=== PATIENT | female | born 1960 | race Caucasian/White ===

== ENCOUNTER 2018-07-11 06:43 | Day surgery (SDC) | END 2018-07-11 14:54 | disposition home or self-care (01) ==

== ENCOUNTER 2018-10-03 06:09 | Day surgery (SDC) | payer OTHER ==
[~2018-10-03] VITALS: Ht 127 cm; Wt 74.9 kg
[2018-10-03 07:29] VITALS: BP 122/58; PULSE 60; RESP 14
[2018-10-03] MEDS ORDERED: no meds (07:29)
--- NOTE | 2018-10-03 07:31 | PREAC ---
Date/Time of Note Date/Time of Note DATE: 10/03/18 TIME: 07:29 Anesthesia Eval and Record Evaluation Time Pre-Procedure Interview DATE: 10/03/18 TIME: 07:29 Age 58 Sex female NPO: 8 hrs Preoperative diagnosis ABDOMINAL PAIN Planned procedure EGD Past Medical History Past Medical History: Includes Cardio: Dyslipidemia GI: Obesity Surgery & Anesthesia Issues No known issue Meds Anticoagulation: No Beta Beena within 24 hr: No Reason Beta Beena not given: Pt. not on B-Beena Reported Medications [no meds] No Conflict Check 10/03/18 [None] No Conflict Check 07/11/18 Meds reviewed: Yes Allergies Coded Allergies: No Known Allergy (Unverified , 05/08/12) Allergies Reviewed: Yes Labs/Studies Labs Reviewed: Reviewed by anesthesiologist test: N/A Pre-procedure Exam Airway: Adequate mouth opening, Adequate thyromental dist Mallampati: Mallampati II Teeth: Normal Lung: Normal Heart: Normal ASA Physical Status ASA physical status: 2 Emergency: None Planned Anesthetic General/MAC: MAC Planned Pain Management Parenteral pain med Pre-operative Attestations Prior to commencing anesthesia and surgery, the patient was re-evaluated, there was verification of: *The patient's identity *The results of appropriate recent lab work and preoperative vital signs *The above evaluation not changing prior to induction *Anesthetic plan, risk benefits, alternative and complications discussed with patient/family; questions answered; patient/family understands, accepts and wishes to proceed. LINDSAY RUIZ Oct 03, 2018 07:31
[2018-10-03] MEDS ORDERED: LIDOCAINE 2% (SDV) 5 ML INJ ONE (07:32)
[2018-10-03] MEDS ORDERED: PROPOFOL 40 ML ONE (07:32)
[2018-10-03] MEDS ORDERED: EPHEDrine SULFATE 50 MG/5 ML SYG IV PRN (08:00)
[2018-10-03] MEDS ORDERED: FENTAnyl 50 MCG/ML VIAL IV PRN (08:00)
[2018-10-03] MEDS ORDERED: ONDANSETRON 4 MG INJ IV PRN (08:00)
[2018-10-03] MEDS ORDERED: hydrALAzine 20 MG INJ IV PRN (08:00)
[2018-10-03] MEDS ORDERED: LABETALOL HCL 20MG INJ IV PRN (08:00)
--- NOTE | 2018-10-03 08:29 | PAC ---
Date/Time of Note Date/Time of Note DATE: 10/03/18 TIME: 08:28 Post-Anesthesia Notes Post-Anesthesia Note Last documented vital signs TEMP 98.1 BP 124/67 O2 SAT 99% Activity: WNL Respiratory function: WNL Cardiovascular function: WNL Mental status: Baseline Pain reasonably controlled: Yes Hydration appropriate: Yes Nausea/Vomiting absent: Yes LINDSAY RUIZ Oct 03, 2018 08:29
[2018-10-03 08:57] VITALS: BP 112/58; RESP 15
== END 2018-10-03 08:51 | disposition home or self-care (01) ==
LOC: GIL 06:09
PROVIDERS: ATTEND Internal Medicine Gastroenterology
DX: K29.00 Acute gastritis without bleeding (principal)
CPT/HCPCS: 43239; Z7610; 88305; 88312; 88313

== ENCOUNTER 2019-01-23 06:13 | Day surgery (SDC) | payer OTHER ==
[2019-01-23] VITALS (17 sets, daily range): BP systolic 100–126; BP diastolic 55–67; PULSE 53–67; RESP 13–27; Ht 147.3 cm; Wt 75.4 kg
[~2019-01-23] VITALS: Ht 147.3 cm; Wt 75.4 kg
[~2019-01-23 06:13] MED LIST: no meds
[2019-01-23] MEDS ORDERED: ACETAMINOPHEN 500 MG TAB PO ONE (06:30)
[2019-01-23] MEDS ORDERED: FENTAnyl 50 MCG/ML VIAL ONE (07:58)
[2019-01-23] MEDS ORDERED: ONDANSETRON 4 MG INJ ONE (07:58)
[2019-01-23] MEDS ORDERED: PROPOFOL 40 ML ONE (07:58)
[2019-01-23] MEDS ORDERED: CEFAZOLIN 1 GM INJ ONE (07:58)
[2019-01-23] MEDS ORDERED: FAMOTIDINE 20 MG INJ ONE (07:58)
[2019-01-23] MEDS ORDERED: LIDOCAINE 2% (SDV) 5 ML INJ ONE (07:59)
[2019-01-23] MEDS ORDERED: SIMV80TA PO (08:23)
[2019-01-23] MEDS ORDERED: DESFLURANE 15 MIN ONE (09:00)
--- NOTE | 2019-01-23 09:00 | PREOPHP ---
DATE OF ADMISSION: 01/23/2019 HISTORY OF PRESENT ILLNESS: This is a 58-year-old lady, 6, para 6 with 3 C-sections. Her la st normal menstrual period was at the age of 46. She was admitted for D and C, hysteroscopy, and suc tion curettage. This patient has endometrial thickening and endometrial biopsy was attempted but the cervix was stenotic, so she was admitted for the above procedure. Procedures were explained to the patient and she understood everything totally. The risks, benefits, and alternatives were discussed with her as well. PAST PERSONAL HISTORY: No history of diabetes, TB, or asthma. The patient has history of high carla sterol. ALLERGIES: NO ALLERGIES. PAST SURGICAL HISTORY: She had x3 and also she had foot surgery. FAMILY HISTORY: Noncontributory. GYNECOLOGIC HISTORY: She had menarche at the age of 10, every 28 days interval, 3 to 4 days' duratio n and moderate in amount. OBSTETRICAL HISTORY: She is 4, para 6 with 3 normal deliveries and 3 C-sections. REVIEW OF SYSTEMS: CARDIOVASCULAR: No chest pains. RESPIRATORY: No cough. GASTROINTESTINAL: No diarrhea, no vomiting. GENITOURINARY: No dysuria. PHYSICAL EXAMINATION: GENERAL: Reveals a conscious, coherent lady and in no acute distress. VITAL SIGNS: Her blood pressure 120/80, pulse rate 80 per minute, respirations 16 per minute. BREASTS, HEART AND LUNGS: Within normal limits. ABDOMEN: Soft. No organomegaly. PELVIC: Revealed the cervix to be firm, uterus of normal size, and adnexa were negative for masses. RECTAL: Confirmed the pelvic findings. EXTREMITIES: No pedal edema. ADMITTING DIAGNOSES: 1. Endometrial thickening, rule out endometrial hyperplasia. 2. Menopause. PLAN: The patient was planned to have the above procedure. Dictated By: CINTHYA RADFORD/TELLY Conf#: [id number] DID#: [id number]
--- NOTE | 2019-01-23 09:31 | PREAC ---
Date/Time of Note Date/Time of Note DATE: 01/23/19 TIME: 09:30 Anesthesia Eval and Record Evaluation Time Pre-Procedure Interview DATE: 01/23/19 TIME: 09:30 Age 58 Sex female NPO: 8 hrs Preoperative diagnosis endometrial thickening Planned procedure D&C Hysteroscopy Past Medical History Past Medical History: Includes Cardio: Dyslipidemia Musculoskeletal: Osteoarthritis GI: Obesity Surgery & Anesthesia Issues No known issue Meds Anticoagulation: No Beta Beena within 24 hr: No Reason Beta Beena not given: Pt. not on B-Beena Reported Medications Simvastatin* (Zocor*) 80 Mg Tablet, 80 MG PO QHS, #30 TAB 01/23/19 Discontinued Reported Medications [no meds] No Conflict Check 10/03/18 [None] No Conflict Check 07/11/18 Meds reviewed: Yes Allergies Coded Allergies: No Known Allergy (Unverified , 01/23/19) Allergies Reviewed: Yes Labs/Studies Labs Reviewed: Reviewed by anesthesiologist Blood Bank Test 01/22/19 13:36 Antibody Screen NEGATIVE Blood Type B POSITIVE test: N/A Pre-procedure Exam Last vitals Vital Signs Date Temp Pulse Resp B/P (MAP) Pulse Ox O2 O2 Flow FiO2 Time Delivery Rate 01/23/19 97.6 60 16 125/61 98 Room Air 08:36 (82) Airway: Adequate mouth opening, Adequate thyromental dist Mallampati: Mallampati II Teeth: Normal Lung: Normal Heart: Normal ASA Physical Status ASA physical status: 2 Emergency: None Planned Anesthetic General/MAC: LMA Pre-operative Attestations Prior to commencing anesthesia and surgery, the patient was re-evaluated, there was verification of: *The patient's identity *The results of appropriate recent lab work and preoperative vital signs *The above evaluation not changing prior to induction *Anesthetic plan, risk benefits, alternative and complications discussed with patient/family; questions answered; patient/family understands, accepts and wishes to proceed. Stave Block Splitter used URIAH SERRA Jan 23, 2019 09:31
[2019-01-23] MEDS ORDERED: HYDROmorphONE 1 MG/5 ML IV SYRINGE IV PRN ×3 (10:00)
[2019-01-23] MEDS ORDERED: ONDANSETRON 4 MG INJ IV PRN (10:00)
[2019-01-23] MEDS ORDERED: MEPERIDINE 25 MG INJ IV PRN (10:00)
[2019-01-23] MEDS ORDERED: ALBUTEROL 0.083% (NEB) 2.5 MG/3 ML AMP HHN PRN (10:00)
[2019-01-23] MEDS ORDERED: DIPHENHYDRAMINE 50 MG INJ IV PRN (10:00)
[2019-01-23] MEDS ORDERED: morphine 2 MG INJ IV PRN ×2 (10:00)
[2019-01-23] MEDS ORDERED: OXYCODONE/ACETAMINOPHEN (5/325) TAB PO PRN ×2 (10:00)
[2019-01-23] MEDS ORDERED: LABETALOL HCL 20MG INJ IV PRN (10:00)
[2019-01-23] MEDS ORDERED: FENTAnyl 50 MCG/ML VIAL IV PRN ×2 (10:00)
--- NOTE | 2019-01-23 10:13 | PAC ---
Date/Time of Note Date/Time of Note DATE: 01/23/19 TIME: 10:13 Post-Anesthesia Notes Post-Anesthesia Note Last documented vital signs Vital Signs Date Temp Pulse Resp B/P (MAP) Pulse Ox O2 O2 Flow FiO2 Time Delivery Rate 01/23/19 97.6 98 60 66 16 16 125/61 98 100 Room 08:36 100 (82) 100/ Air face 9 54 mask 8L Activity: WNL Respiratory function: WNL Cardiovascular function: WNL Mental status: Baseline Pain reasonably controlled: Yes Hydration appropriate: Yes Nausea/Vomiting absent: Yes URIAH SERRA Jan 23, 2019 10:13
--- NOTE | 2019-01-23 11:04 | SIPON ---
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
[2019-01-23] MEDS ORDERED: ACETAMINOPHEN 325 MG TAB PO PRN (11:30)
--- NOTE | 2019-01-24 11:35 | OPR ---
DATE OF OPERATION: 01/23/2019 PREOPERATIVE DIAGNOSIS: Endometrial thickening, rule out endometrial hyperplasia. POSTOPERATIVE DIAGNOSIS: Endometrial thickening, rule out endometrial hyperplasia. OPERATION PERFORMED: Pelvic exam under anesthesia attempted, dilatation and curettage, but failed du e to a stenotic cervix. ANESTHESIA: General. SURGEON: Cinthya Syed MD. 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 ANESTHESIA: General. OPERATIVE TECHNIQUE: Under general anesthesia, the patient was prepped and draped in the usual fashi on for vaginal surgery. Pelvic exam under anesthesia revealed the cervix to be firm, uterus of cinthya l size, and adnexa were negative for masses. Then, the heavy weight vaginal retractor was put in john ce and the anterior lip of the cervix was grasped with an Allis clamp. Then after grasping the cervi x and the anterior lip, there was some oozing noted most likely from adhesions on the posterior vagin al mucosa. This happened after grasping the cervix from the anterior lip. Then, the posterior lip o f the cervix was grasped with a tenaculum to check for the oozing. The oozing was noted at the back of the lower uterine segment and the vaginal mucosa. The first attempt at D and C was done. The smal ler curet was tried to open the cervix. After many attempts, the cervix still was not dilated and ev en the sound could not be inserted inside the uterus. After many attempts, the endocervix was noted to be very friable. Then, after many attempts of endocervical dilatation the procedure was terminate d. One [id number] suture was put in at the vaginal mucosa at the back of the lower uterine segm ent. The bleeding was controlled. The patient tolerated the procedure well. Estimated blood loss w as minimal, 2-0 Vicryl was used to put the suture. Dictated By: CINTHYA RADFORD/TELLY Conf#: [id number] DID#: [id number]
== END 2019-01-23 12:32 | disposition home or self-care (01) ==
LOC: SDS 06:13
PROVIDERS: ATTEND Obstetrics & Gynecology
DX: R93.89 Abnormal findings on diagnostic imaging of other specified body structures (principal); E78.00 Pure hypercholesterolemia, unspecified; Z78.0 Asymptomatic menopausal state
CPT/HCPCS: 58120; 84702; 84703; 86850; 86900; 86901; J0690; J2405; J3010; Z7512; Z7610